=== PATIENT | male | born 1965 | race Caucasian/White ===

== ENCOUNTER 2019-11-13 07:41 | Emergency (ER) | payer BC ==
[~2019-11-13] VITALS: Ht 177.8 cm; Wt 106.6 kg
[~2019-11-13 07:41] MED LIST: AMOXICILLIN500 MG; DICYCLOMINE HCL20 MG PO; NORCO1 EA PO; Z.0.ZEGERID 20 MG1 E MT; [UNRECOGNIZED DRUG - OTHER] PO
[2019-11-13] MEDS ORDERED: SODIUM CHLORIDE 0.9% 1000ML 1,000 ML IV STA (08:15)
[2019-11-13] MEDS ORDERED: HYDRALAZINE HCL 20 MG/ML VIAL IV STA (08:20)
--- NOTE | 2019-11-13 08:32 | NUR ---
admin approval - Britneynicolle Deutsch @ 0832 accepting physician - Dr. Berto Burgos transfer to: [facility] ED [address] [facility] [address] fax face sheet to call report to
--- NOTE | 2019-11-13 08:41 | Emergency Department Note ---
History of Present Illnes History of Present Illness Chief Complaint: General Medicine Complaints History of Present Illness This is a 54 year old male Patient in from home with complaints of dizziness. Patient reports that it started this morning when he woke up. Patient recently had a cochlear surgery (2 weeks ago) with Dr. Abhishek Collado (ENT) at [facility] and said that he felt the surgical area behind his left ear and noted it was swollen. Patient states that he gently pushed on the area and heard some "buzz sound" and immediately became dizzy and fell to the floor. Patient does report that he had his regular follow up with Dr. Collado on November 10 and everything looked good. Historian: Patient, Family Member Arrival Mode: Car Onset (how long ago): hour(s) Radiation: Reports non-radiation Severity: severe Onset quality: sudden Timing of current episode: intermittent Progression: waxing and waning Chronicity: new Context: Reports recent surgery; Denies recent illness Relieving factors: none Exacerbating factors: none Associated symptoms: Reports denies other symptoms; Denies chest pain, Denies cough, Denies shortness of breath Treatments prior to arrival: none Past Medical/Family History Physician Review I have reviewed the patient's past medical and family history. Any updates have been documented here. Past Medical History Recent Fever: No Clinical Suspicion of Infectio: No New/Unexplained Change in Ment: No Past Medical History: Hypertension, Depression Other Medical History: IBS HARD OF HEARING Choclear implants Other Surgery: Cervical fusion in neck Bilateral knee surgery Vasectomy Tendon repair to right arm Bilateral Cochlear implants Social History Smoking Cessation: Never Smoker Counseling Performed: No Alcohol Use: Daily Any Illegal Drug Use: No TB Exposure/Symptoms: No Physically hurt or threatened: No Family History Family history of heart diseas: No Other Last Tetanus: Up to date Any Pre-Existing Lines (PICC,: No Review of Systems Review of Systems Constitutional: Reports no symptoms EENTM: Reports no symptoms Cardiovascular: Reports no symptoms Respiratory: Reports no symptoms Gastrointestinal: Reports no symptoms Genitourinary: Reports no symptoms Musculoskeletal: Reports no symptoms Integumentary: Reports no symptoms Neurological: Reports as per HPI Psychological: Reports no symptoms Endocrine: Reports no symptoms Hematological/Lymphatic: Reports no symptoms Physical Exam Related Data Allergies: Coded Allergies: No Known Allergies (Verified , 12/21/15) Triage Vital Signs Vital Signs Date Time Temp Pulse Resp B/P (MAP) Pulse Ox O2 Delivery O2 Flow Rate FiO2 11/13/19 07:53 98.1 66 20 170/117 100 Room Air Vital signs reviewed: Yes Physical Exam CONSTITUTIONAL Constitutional: Present well-developed, Present well-nourished HENT HENT: Present normocephalic, Present atraumatic, Present oropharynx clear/moist, Present nose normal HENT L/R: Present left ext ear normal, Present right ext ear normal EYES Eyes: Reports PERRL, Reports conjunctivae normal NECK Neck: Present ROM normal PULMONARY Pulmonary: Present effort normal, Present breath sounds normal CARDIOVASCULAR Cardiovascular: Present regular rhythm, Present heart sounds normal, Present capillary refill normal, Present normal rate GASTROINTESTINAL Abdominal: Present soft, Present nontender, Present bowel sounds normal GENITOURINARY Genitourinary: Present exam deferred SKIN Skin: Present warm, Present dry, Present other (swelling superior to left ear, ? fluctuance but not tender at all) MUSCULOSKELETAL Musculoskeletal: Present ROM normal NEUROLOGICAL Neurological: Present alert, Present oriented x 3, Present no gross motor or sensory deficits, Present abnormal gait (when i stood patient up, he immediately became dizzy/lightheaded, had to sit back down), Present other (NO NYSTAGMUS); Absent cranial nerve deficit, Absent sensory deficit, Absent abnormal DTRs, Absent weakness PSYCHOLOGICAL Psychological: Present mood/affect normal, Present judgement normal Results Laboratory Lab results reviewed: Yes Laboratory comments Laboratory Tests Test 11/13/19 08:11 White Blood Count 4.86 x10e3/uL (4.8-10.8) Red Blood Count 4.48 x10e6/uL (4.3-5.7) Hemoglobin 13.6 g/dL (14.0-18.0) Hematocrit 41.2 % (38.2-49.6) Mean Corpuscular Volume 92.0 fL (81-99) Mean Corpuscular Hemoglobin 30.4 pg (28-32) Mean Corpuscular Hemoglobin Concent 33.0 g/dL (31-35) Red Cell Distribution Width 12.9 % (11.7-14.4) Platelet Count 240 x10e3/uL (140-360) Neutrophils (%) (Auto) 55.0 % (38.7-80.0) Lymphocytes (%) (Auto) 29.2 % (18.0-39.1) Monocytes (%) (Auto) 12.3 % (4.4-11.3) Eosinophils (%) (Auto) 1.9 % (0.0-6.0) Basophils (%) (Auto) 1.2 % (0.0-1.0) Neutrophils # (Auto) 2.7 (2.1-6.9) Lymphocytes # (Auto) 1.4 (1.0-3.2) Monocytes # (Auto) 0.6 (0.2-0.8) Eosinophils # (Auto) 0.1 (0.0-0.4) Basophils # (Auto) 0.1 (0.0-0.1) Absolute Immature Granulocyte (auto 0.02 x10e3/uL (0-0.1) Prothrombin Time 12.2 seconds (11.9-14.5) Prothromb Time International Ratio 0.87 Activated Partial Thromboplast Time 30.9 seconds (23.8-35.5) Sodium Level 139 mmol/L (136-145) Potassium Level 4.1 mmol/L (3.5-5.1) Chloride Level 104 mmol/L (98-107) Carbon Dioxide Level 23 mmol/L (22-29) Anion Gap 16.1 mmol/L (8-16) Blood Urea Nitrogen 20 mg/dL (7-26) Creatinine 1.07 mg/dL (0.72-1.25) Estimat Glomerular Filtration Rate > 60 ML/MIN (60-) BUN/Creatinine Ratio 19 (6-25) Glucose Level 72 mg/dL (74-118) Calcium Level 9.5 mg/dL (8.4-10.2) Magnesium Level 2.1 MG/DL (1.3-2.1) Total Bilirubin 0.6 mg/dL (0.2-1.2) Aspartate Amino Transf (AST/SGOT) 21 IU/L (5-34) Alanine Aminotransferase (ALT/SGPT) 19 IU/L (0-55) Alkaline Phosphatase 87 IU/L (40-150) Creatine Kinase 162 IU/L (30-200) Creatine Kinase MB 1.40 ng/mL (0-4.3) Troponin I < 0.05 ng/mL (0.0-0.40) Total Protein 7.1 g/dL (6.5-8.1) Albumin 4.2 g/dL (3.5-5.0) Globulin 2.9 g/dL (2.3-3.5) Albumin/Globulin Ratio 1.4 (0.8-2.0) Ethyl Alcohol Level < 10.0 mg/dL (0.0-10.0) Laboratory Tests Test 11/13/19 08:11 White Blood Count 4.86 x10e3/uL (4.8-10.8) Red Blood Count 4.48 x10e6/uL (4.3-5.7) Hemoglobin 13.6 g/dL (14.0-18.0) Hematocrit 41.2 % (38.2-49.6) Mean Corpuscular Volume 92.0 fL (81-99) Mean Corpuscular Hemoglobin 30.4 pg (28-32) Mean Corpuscular Hemoglobin Concent 33.0 g/dL (31-35) Red Cell Distribution Width 12.9 % (11.7-14.4) Platelet Count 240 x10e3/uL (140-360) Neutrophils (%) (Auto) 55.0 % (38.7-80.0) Lymphocytes (%) (Auto) 29.2 % (18.0-39.1) Monocytes (%) (Auto) 12.3 % (4.4-11.3) Eosinophils (%) (Auto) 1.9 % (0.0-6.0) Basophils (%) (Auto) 1.2 % (0.0-1.0) Neutrophils # (Auto) 2.7 (2.1-6.9) Lymphocytes # (Auto) 1.4 (1.0-3.2) Monocytes # (Auto) 0.6 (0.2-0.8) Eosinophils # (Auto) 0.1 (0.0-0.4) Basophils # (Auto) 0.1 (0.0-0.1) Absolute Immature Granulocyte (auto 0.02 x10e3/uL (0-0.1) Prothrombin Time 12.2 seconds (11.9-14.5) Prothromb Time International Ratio 0.87 Activated Partial Thromboplast Time 30.9 seconds (23.8-35.5) Ethyl Alcohol Level < 10.0 mg/dL (0.0-10.0) Imaging Imaging results reviewed: Yes Procedures 12 Lead ECG Interpretation ECG Interpretation : ECG: ECG 1 Quality Control Clerk: Interpreted by ED physician Date: Nov 13, 2019 Time: 08:46 Rhythm: sinus bradycardia Rate: bradycardia BPM: 57 QRS axis: normal ST segments normal: Yes T waves flattening: aVL, V5, V6 Clinical Impression: abnormal ECG Additional Comments NON-SPEC TW CHANGES Assessment & Plan Medical Decision Making MDM DIZZINESS ? VERTIGO S/P LEFT COCHLEAR IMPLANT 2 WKS AGO, SWELLING LEFT SUPRA- AURICULAR AREA OF SCALP, BP ELEVATED - CHECK CBC, CHEM, ECG, CARDIAC ENZYMES, CT BRAIN - R/O DYSRHYTHMIA, STEMI/NSTEMI, VERTIGO, CVA, DEHYDRATION, ELECTROLYTE ABNL Reassessment Reassessment i spoke with Dr Abhishek Schwab at [facility] - he wants pt transferred so he can evaluate and do high-res CT of temporal bones - i offered to do it here but he wants us to do ER workup for his condition and then transfer, will do the high-res CT there of temporal bone. Transfer initiated, I spoke with Dr Chuck LOPEZ MD who accepted pt for transfer Assessment & Plan Final Impression: (1) Vertigo Last Vital Signs Date Time Temp Pulse Resp B/P (MAP) Pulse Ox O2 Delivery O2 Flow Rate FiO2 11/13/19 07:53 98.1 66 20 170/117 100 Room Air Medications in the ED Sodium Chloride 1,000 ml @ 0 mls/hr Q0M STAT IV ; Start 11/13/19 at 08:15; Stop 11/13/19 at 08:18; Status DC Hydralazine HCl 10 mg NOW STAT IV ; Start 11/13/19 at 08:20; Stop 11/13/19 at 08:28; Status DC SUBHA STALLINGS MD Nov 13, 2019 08:41
--- NOTE | 2019-11-13 08:54 | Diagnostic Imaging Report ---
TECHNIQUE: Frontal view of the chest. INDICATION: ^OFF-BALANCE ^[id number] ^0830 COMPARISON: None DISCUSSION: Limited evaluation due to portable technique. Lines and hardware: Partially visualized cervical fusion changes are noted. Heart and mediastinum: Stable. Lungs and pleura: No focal airspace consolidation. No pleural effusion. No pneumothorax. Soft tissues and bones: No acute abnormality. IMPRESSION: Negative for acute intrathoracic process. Signed by: Norm Thompson MD on 11/13/2019 8:50 AM
[2019-11-13 09:04] LABS: BASOPHILS # (AUTO) 0.1 (0.0-0.1); BASOPHILS % 1.2 % (0.0-1.0); EOSINOPHILS # (AUTO) 0.1 (0.0-0.4); EOSINOPHILS % 1.9 % (0.0-6.0); HEMATOCRIT 41.2 % (38.2-49.6); HEMOGLOBIN 13.6 g/dL (14.0-18.0); LYMPHOCYTES # (AUTO) 1.4 (1.0-3.2); LYMPHOCYTES % 29.2 % (18.0-39.1); MEAN CORPUSCULAR HEMOGLOBIN 30.4 pg (28-32); MONOCYTES # (AUTO) 0.6 (0.2-0.8); MONOCYTES % 12.3 % (4.4-11.3); NEUTROPHILS # (AUTO) 2.7 (2.1-6.9); PLATELET COUNT 240 x10e3/uL (140-360); RED BLOOD COUNT 4.48 x10e6/uL (4.3-5.7); RED CELL DISTRIBUTION WIDTH 12.9 % (11.7-14.4)
[2019-11-13 09:14] LABS: INR 0.87; PROTHROMBIN TIME 12.2 seconds (11.9-14.5)
[2019-11-13 09:15] LABS: PARTIAL THROMBOPLASTIN TIME 30.9 seconds (23.8-35.5)
[2019-11-13 09:27] LABS: ALANINE AMINOTRANSFERASE 19 IU/L (0-55); ALBUMIN 4.2 g/dL (3.5-5.0); ALBUMIN/GLOBULIN RATIO 1.4 (0.8-2.0); ALKALINE PHOSPHATASE 87 IU/L (40-150); ANION GAP 16.1 mmol/L (8-16); BLOOD UREA NITROGEN 20 mg/dL (7-26); BUN/CREATININE RATIO 19 (6-25); CALCIUM 9.5 mg/dL (8.4-10.2); CARBON DIOXIDE 23 mmol/L (22-29); CHLORIDE 104 mmol/L (98-107); CREATINE KINASE 162 IU/L (30-200); CREATININE, SERUM 1.07 mg/dL (0.72-1.25); EST GLOMERULAR FILTRATION RATE > 60 ML/MIN (60-); GLUCOSE 72 mg/dL (74-118); MAGNESIUM 2.1 MG/DL (1.3-2.1); POTASSIUM 4.1 mmol/L (3.5-5.1); SODIUM 139 mmol/L (136-145)
--- OUTSIDE RECORDS SUMMARY | 2019-11-13 09:37 | XMS REPORT | Clinical Summary ---
Author Author REX [facility] Address Unknown Phone Unavailable Care Team Providers Care Librarian Specialist Name Role Phone Benjamin Costa MD PCP [phone] Allergies No Known Allergies Medications End Date Status Medication Sig Dispensed Refills Start Date Active losartan (COZAAR) 50 MG Take 50 mg by 0 tablet mouth daily. Active DULoxetine (CYMBALTA) 20 Take 20 mg by 0 MG capsule mouth daily. 06/01/2019 amoxicillin-clavulanate Take 1 tablet 20 tablet 0 (AUGMENTIN) 875-125 mg by mouth 2 0 per tablet (two) times daily for 10 days. 06/01/2019 acetaminophen-codeine Take 1 tablet 30 tablet 0 (TYLENOL #4) 300-60 mg by mouth 0 per tablet every 6 (six) hours as needed for up to 10 days. Max Daily Amount: 4 tablets 05/29/2019 methylPREDNISolone follow 21 tablet 0 02 (MEDROL DOSEPACK) 4 mg package 0 tablet directions. 05/29/2019 ondansetron (ZOFRAN-ODT) Take 1 tablet 10 tablet 0 8 MG disintegrating (8 mg total) 0 tablet by mouth 2 (two) times daily as needed for Nausea for up to 7 days. 05/22/2019 pneumococcal vaccine Inject 0.5 0.5 mL 0 05/21 (PNEUMOVAX 23) 25 mcg/0.5 mLs 0 mL injection intramuscular ly once for 1 dose. 11/02/2019 amoxicillin-clavulanate Take 1 tablet 20 tablet 0 (AUGMENTIN) 875-125 mg by mouth 2 0 per tablet (two) times daily for 10 days. 11/02/2019 acetaminophen-codeine Take 1 tablet 30 tablet 0 (TYLENOL #4) 300-60 mg by mouth 0 per tablet every 6 (six) hours as needed for up to 10 days. Max Daily Amount: 4 tablets Active Problems Problem Noted Date Hearing loss 10/23/2019 Encounters Care Team Description Date Type Specialty Berto Burgos Jr., MD 11/13/2019 Hospital Encounter Drake Davis MD 10/23/2019 Anesthesia Event bAhishek Schwab MD IMPLANT,COCHLEAR 10/23/2019 Surgery Abhishek Schwab MD 10/23/2019 Hospital Encounter 10/23/2019 Travel 10/20/2019 Hospital Pre-Admission Testi ng Encounter Abhishek Schwab MD Asymmetric SNHL (sensorineural hearing l oss) (Primary Dx); Presbycusis of both ears 05/26/2019 Outside Orders Central Scheduling Abhishek Schwab MD IMPLANT,COCHLEAR 05/22/2019 Surgery Darke Davis MD 05/22/2019 Anesthesia Event Abhishek Schwab MD 05/22/2019 Hospital Encounter 05/22/2019 Travel Abhishek Schwab MD 05/20/2019 Hospital Cardiology Encounter Abhishek Schwab MD 05/20/2019 Hospital Pre-Admission Testi ng Encounter 05/20/2019 Orders Only General Internal Me dicine after 11/12/2018 Social History Date Tobacco Use Types Packs/Day Years Used Former Smoker Smokeless Tobacco: Never Used Comments: as teenager only Alcohol Use Drinks/Week oz/Week Comments Yes 2 Cans of 1.2 beer Alcohol Habits Answer Date Recorded How often do you have a drink containing alcohol? Never 05/20/2019 How many drinks containing alcohol do you have on No t asked a typical day when you are drinking? How often do you have six or more drinks on one Not asked occasion? Sex Assigned at Date Recorded Not on file Industry Job Start Date Occupation Not on file Not on file Not on file Travel End Travel History Travel Start No recent travel history available. Last Filed Vital Signs Time Taken Vital Sign Reading 10/23/2019 4:00 PM CDT Blood Pressure 135/85 10/23/2019 4:00 PM CDT Pulse 87 10/23/2019 4:00 PM CDT Temperature 36.6 C (97.8 F) 10/23/2019 4:00 PM CDT Respiratory Rate 19 10/23/2019 4:00 PM CDT Oxygen Saturation 96% - Inhaled Oxygen - Concentration 10/23/2019 7:50 AM CDT Weight 100.8 kg (222 lb 4.8 oz) 10/23/2019 7:50 AM CDT Height 177.8 cm (5' 10") 10/23/2019 7:50 AM CDT Body Mass Index 31.9 Plan of Treatment Not on file Implants Device Identifier Shelf Expiration Date Model / Serial / L ot Implanted Type Area Manufactur er 02/17/2021 [id number] / [id number] / Nucleus [id number] With Elctrd [id number] - IMPLANTS Right: Ear COCHLEAR [id number] [employer] Implanted: Qty: 1 on 05/22/2019 by Abhishek Schwab MD 09/06/2021 [id number] / [id number] / [id number] Nucleus [id number] With Elctrd [id number] - IMPLANTS Left: Ear COCHLEAR [id number] [employer] Implanted: Qty: 1 on 10/23/2019 by Abhishek Schwab MD Procedures Comments Procedure Name Priority Date/Time Associated Diag nosis PROCEDURE W/ NIMS 10/23/2019 Sensory hearing los s, 10:00 AM CDT bilateral Case Notes 2 HRS PER [facility]RISTINAP ATIENT ISN'T A DIALYSIS PATIENT Special Needs (NIMS) IMPLANT,COCHLEAR 10/23/2019 Sensory hearing los s, 10:00 AM CDT bilateral Case Notes 2 HRS PER CHRISTINAP ATIENT ISN'T A DIALYSIS PATIENT Special Needs (NIMS) POCT-HEMOGLOBIN METER Routine 10/23/2019 8:23 AM CDT BASIC METABOLIC PANEL (7) STAT 10/23/2019 8:10 AM CDT PROCEDURE W/ OPERATING 05/22/2019 Sensory hearin g loss, MICROSCOPE 10:30 AM CDT bilateral Case Notes 2 HRS Special Needs (NIMS) PROCEDURE W/ NIMS 05/22/2019 Sensory hearing los s, 10:30 AM CDT bilateral Case Notes 2 HRS Special Needs (NIMS) IMPLANT,COCHLEAR 05/22/2019 Sensory hearing los s, 10:30 AM CDT bilateral Case Notes 2 HRS Special Needs (NIMS) BUN AND CREATININE Routine 05/20/2019 W/RATIO 2:55 PM CDT ELECTROLYTE PANEL Routine 05/20/2019 2:55 PM CDT HEMOGLOBIN Routine 05/20/2019 2:55 PM CDT ECG 12-LEAD Routine 05/20/2019 11:14 AM CDT Procedure Note - Interface, External Ris In - 05/20/2019 5:33 PM CDT Ventricula r Rate 60 BPM Atrial Rate 60 BPM P-R Interval 150 ms QRS Duration 112 ms Q-T Interval 378 ms QTC Calculatio n(Bazett) 378 ms P [facility] 23 degrees R [facility] -25 degrees T [facility] 35 degrees Normal sinus rhythm Normal ECG No previous ECGs available ECG 12-LEAD Routine 05/20/2019 11:14 AM CDT after 11/12/2018 Results * POC-Hemoglobin meter (10/23/2019 8:23 AM CDT) POC-Hemoglobin Meter 14.5Comment: TESTED AT [facility] 13.0 - 16.8 g/dL [address] Specimen Blood Performing Organization Address City/State/Zipcoor Ph one Number [place] [address] [facility] * Basic Metabolic Panel (10/23/2019 8:10 AM CDT) Sodium 134 (L) 136 - 145 meq/L [facility] Potassium 3.9 3.5 - 5.1 meq/L [facility] Chloride 102 98 - 107 meq/L [facility] CO2 26 22 - 29 meq/L [facility] BUN 15 7 - 21 mg/dL [facility] Creatinine 0.91 0.57 - 1.25 mg/dL [facility] Glucose 104 70 - 105 mg/dL [facility] Calcium 8.9 8.4 - 10.2 mg/dL [facility] EGFR 87Comment: ESTIMATED GFR IS mL/min/1.73 sq m [facility] NOT ACCURATE CREATININE [facility] CLEARANCE IN PREDICTING GLOMERULAR FILTRATION RATE. ESTIMATED GFR IS NOT APPLICABLE FOR DIALYSIS PATIENTS. Specimen Blood Narrative Performed At Chief Lock Tender Operator ID - VANCE C [facility] Performing Organization Address City/[facility] Ph one Number [place] [address] [facility] * BUN and Creatinine (05/20/2019 2:55 PM CDT) BUN 15 7 - 21 mg/dL [facility] Creatinine 1.04Comment: Specimen slightly 0.57 - 1.25 mg/ dL [facility] hemolyzed [facility] BUN/Creatinine Ratio 14.4Comment: For a normal [facility] individual on a normal diet, [facility] the reference interval for the mass ratio ranges between 12:1 and 20:1 (BUN in mg/dL/creatinine in mg/dL) EGFR 74Comment: ESTIMATED GFR IS mL/min/1.73 sq m [facility] NOT ACCURATE CREATININE [facility] CLEARANCE IN PREDICTING GLOMERULAR FILTRATION RATE. ESTIMATED GFR IS NOT APPLICABLE FOR DIALYSIS PATIENTS. Specimen Blood Narrative Performed At Chief Lock Tender Operator ID - DOROTHEA E [facility] Performing Organization Address City/[facility] Ph one Number [facility] [address] [place], [place] [address] [facility] * Hemoglobin (05/20/2019 2:55 PM CDT) Hemoglobin 14.6 13.7 - 17.5 GM/DL [facility] Specimen Blood Narrative Performed At Chief Lock Tender Operator ID - [id number] [facility] Performing Organization Address City/State/Zipcode Ph one Number [facility] [address] [place], [place] [address] [facility] * Electrolytes (05/20/2019 2:55 PM CDT) Sodium 140 136 - 145 meq/L [facility] Potassium 3.7Comment: Specimen slightly 3.5 - 5.1 meq/L [facility] hemolyzed [facility] Chloride 105 98 - 107 meq/L [facility] CO2 29 22 - 29 meq/L [facility] Specimen Blood Narrative Performed At Chief Lock Tender Operator MARY JANE Worthington [facility] Performing Organization Address [facility] Ph one Number [facility] [address] [place], [place] [address] [facility] * ECG 12 lead (05/20/2019 11:14 AM CDT) Specimen Narrative Performed At Ventricular Rate 60 BPM GE MUSE Atrial Rate 60 BPM P-R Interval 150 ms QRS Duration 112 ms Q-T Interval 378 ms QTC Calculation(Bazett) 378 ms P [facility] 23 degrees R [facility] -25 degrees T [facility] 35 degrees Normal sinus rhythm Normal ECG No previous ECGs available Confirmed by Lo HOLGUIN, BRANDON ([id number]) on 05/21/2019 4:24:50 PM Procedure Note Interface, External Ris In - 05/21/2019 4:24 PM CDT Ventricular Rate 60 BPM Atrial Rate 60 BPM P-R Interval 150 ms QRS Duration 112 ms Q-T Interval 378 ms QTC Calculation(Bazett) 378 ms P [facility] 23 degrees R [facility] -25 degrees T [facility] 35 degrees Normal sinus rhythm Normal ECG No previous ECGs available Confirmed by Lo HOLGUIN BASANT ([id number]) on 05/21/2019 4:24:50 PM Performing Organization Address City/State/[facility] Number GE MUSE after 11/12/2018 Insurance Payer Benefit Subscriber ID Type Phone Address Plan / Group BLUE CROSS/BLUE SHIELD BCBS PPO xxxxxxxxxxxx PPO [address] [place] [address] CHOICE [id number] [facility] (Home) [place] [address]
--- OUTSIDE RECORDS SUMMARY | 2019-11-13 09:37 | XMS REPORT | Continuity of Care Document ---
Author Author [facility] t Organization [facility] Address [address] [place] [address] Phone Unavailable Care Team Providers Care Fitness Floor Attendant Name Role Phone Igor QUINTERO, Celia Alexander PCP [phone] Michael SCHWAB DEBBIE Attphys Unavailable Nate STALLINGS Attphys Unavailable Aubrey QUINTERO, Berto Attphys Pablo Schwab MD. Debbie Attphys Susan QUINTERO, Drkae Attphys Pablo Schwab MD Attphys Michael SCHWAB Admphys Unavailable Payers Payer Name Policy Type Policy Number Effective Date Expiration Date S michela [employer]UE [employer] PPO POS EPO C [id number], [place] [address] xxxxxxxxxxxx [facility] Problems Condition Name Condition Details Condition Category Status Onset Date Resolution Date Last Treatment Date Treating Clinician Comments Source Hearing loss Hearing loss Disease Active 2019-10-23 00:00:00 [facility] Allergies, Adverse Reactions, Alerts This patient has no known allergies or adverse reactions. Social History Social Habit Start Date Stop Date Quantity Comments Source History SDOH Alcohol Std Drinks [facility] History SDOH Alcohol Binge [facility] Sex Assigned At [facility] History SDOH Alcohol Frequency 2019-05-20 00:00:00 2019-05-20 00:00:0 0 1 [facility] Tobacco Comment 2019-05-20 00:00:00 2019-05-20 00:00:00 as teenager o nly [facility] Smoking Status Start Date Stop Date Source Former smoker 2019-10-26 00:00:00 2019-10-26 00:00:00 [facility] Medications Ordered Medication Name Filled Medication Name Start Date Stop Da te Current Medication? Ordering Clinician Indication Dosage Frequency Signature (SIG) Comments Components Source amoxicillin-clavulanate (AUGMENTIN) 875-125 mg per tablet 2019-10-23 00:00:00 2019-11-02 23:59:00 No 1{tbl} Q.5D Take 1 tablet by mouth 2 (two) times daily for 10 days. [facility] acetaminophen-codeine (TYLENOL #4) 300-60 mg per tablet 2019-10-23 00:00:00 2019-11-02 23:59:00 No 1{tbl} Take 1 tablet by mouth every 6 (six) hours as needed for up to 10 days. Max Daily Amount: 4 tablets [facility] amoxicillin-clavulanate (AUGMENTIN) 875-125 mg per tablet 2019-05-22 00:00:00 2019-06-01 23:59:00 No 1{tbl} Q.5D Take 1 tablet by mouth 2 (two) times daily for 10 days. [facility] acetaminophen-codeine (TYLENOL #4) 300-60 mg per tablet 2019-05-22 00:00:00 2019-06-01 23:59:00 No 1{tbl} Take 1 tablet by mouth every 6 (six) hours as needed for up to 10 days. Max Daily Amount: 4 tablets [facility] methylPREDNISolone (MEDROL DOSEPACK) 4 mg tablet 2019-05-22 00:00:00 2019-05-29 23:59:00 No follow package direc tions. [facility] ondansetron (ZOFRAN-ODT) 8 MG disintegrating tablet 2019-05-22 00:00:00 2019-05-29 23:59:00 No 8mg Take 1 tablet (8 mg total) by mouth 2 (two) times daily as needed for Nausea for up to 7 days. [facility] pneumococcal vaccine (PNEUMOVAX 23) 25 mcg/0.5 mL injection 2019-05-22 00:00:00 2019-05-22 23:59:00 No .5mL Inject 0.5 mLs intramuscularly once for 1 dose. [facility] DULoxetine (CYMBALTA) 20 MG capsule 2019-05-20 10:38:43 Yes 20mg QD Take 20 mg by mouth daily. [facility] losartan (COZAAR) 50 MG tablet 2019-05-20 10:38:42 Yes 50mg QD Take 50 mg by mouth daily. [facility] Vital Signs Vital Name Observation Time Observation Value Comments Source Systolic blood pressure 2019-10-23 16:00:00 135 mm[Hg] [facility] Diastolic blood pressure 2019-10-23 16:00:00 85 mm[Hg] [facility] Heart rate 2019-10-23 16:00:00 87 /min [facility] Body temperature 2019-10-23 16:00:00 36.56 Carol [facility] Respiratory rate 2019-10-23 16:00:00 19 /min [facility] Oxygen saturation in Arterial blood by Pulse oximetry 10-22 16:00:00 96 /[facility] height 2019-10-23 07:50:00 177.8 cm [facility] Body weight Measured 2019-10-23 07:50:00 100.835 kg [facility] BMI 2019-10-23 07:50:00 31.90 kg/m2 [facility] Procedures Procedure Date / Time Performed Performing Clinician Sourc e IMPLANT,COCHLEAR 2019-10-23 10:00:00 Debbie Schwab [facility] PROCEDURE W/ NIMS 2019-10-23 10:00:00 Debbie Schwab [facility] POCT-HEMOGLOBIN METER 2019-10-23 08:23:00 Debbie Schwab [facility] BASIC METABOLIC PANEL (7) 2019-10-23 08:10:00 Drake Davis [facility] IMPLANT,COCHLEAR 2019-05-22 10:30:00 Debbie Schwab [facility] PROCEDURE W/ NIMS 2019-05-22 10:30:00 Debbie Schwab [facility] PROCEDURE W/ OPERATING MICROSCOPE 2019-05-22 10:30:00 Nate Schwab [facility] HEMOGLOBIN 2019-05-20 14:55:00 Igor Vicente [facility] ELECTROLYTE PANEL 2019-05-20 14:55:00 Igor Vicente [facility] BUN AND CREATININE W/RATIO 2019-05-20 14:55:00 Igor Vicente and [facility] ECG 12-LEAD 2019-05-20 11:14:14 Unknown, Hl7 Doctor [facility] Encounters Start Date/Time End Date/Time Encounter Type Admission Type Attendi [facility] Care Department Encounter ID Source 2019-06-11 12:56:02 2019-06-11 13:16:39 Office Visit Debbie Haskins [facility] [id number] 2019-05-06 10:58:31 2019-05-06 12:37:33 Office Visit Debbie Haskins [facility] [id number] 2019-04-15 13:36:50 2019-04-15 16:33:48 Office Visit Debbie Haskins [facility] [id number] Results Test Description Test Time Test Comments Results Result Comments Source CHEST SINGLE (PORTABLE) 2019-11-13 08:50:00 [facility] [address] [place] [address] Patient Name: ROCIO VELASCO MR #: [id number] : 1965 Age/Sex: 54/M Req #: [id number] Adm Physician: Ordered by: SUBHA STALLINGS MD Report #: [id number] Location: ER Room/Bed: Procedure: [id number] DX/CHEST SINGLE (PORTABLE) Exam Date: 11/13/19 Exam Time: 829 REPORT STATUS: Signed TECHNIQUE: Frontal view of the chest. INDICATION: OFF-BALANCE 20191113 COMPARISON: None DISCUSSION: Limited evaluation due to portable technique. Lines and hardware: Partially visualized cervical fusion changes are noted. Heart and mediastinum: Stable. Lungs and pleura: No focal airspace consolidation. No pleural effusion. No pneumothorax. Soft tissues and bones: No acute abnormality. IMPRESSION: Negative for acute intrathoracic process. Signed by: Pual Thompson MD on 11/13/2019 8:50 AM Dictated By: PAUL THOMPSON MD 0850 Transc ribed By: DAR on 11/13/19 0850 COPY TO: SUBHA STALLINGS MD POC-Hemoglobin meter 2019-11-12 09:13:00 Test Item POC-Hemoglobin Meter (test code = 1539) 14.5 g/dL 13-16.8 TESTED AT [facility] [address] [facility] [address] Lab Interpretation (test code = 05537-7) [facility] [id number] 09:13:00* Test Item Value Reference Range Interpretation Comments POC-HEMOGLOBIN METER (BEAKER) (test code = 1539) 14.5 g/dL 13.0- 16.8 TESTED AT [place] [id number] [facility] [address] Basic Metabolic [id number] 08:49:00* Test Item Value Reference Range Interpretation Comments Sodium (test code = 2951-2) 134 meq/L 136-145 L Potassium (test code = 2823-3) 3.9 meq/L 3.5-5.1 Chloride (test code = 2075-0) 102 meq/L 98-107 CO2 (test code = 8-9) 26 meq/L 22-29 BUN (test code = 3094-0) 15 mg/dL 7-21 Creatinine (test code = 2160-0) 0.91 mg/dL 0.57-1.25 Glucose (test code = 2345-7) 104 mg/dL 70-105 Calcium (test code = 74683-4) 8.9 mg/dL 8.4-10.2 EGFR (test code = 54153-0) 87 mL/min/1.73 sq m ESTIMATED GFR IS NOT ACCURATE CREATININE CLEARANCE IN PREDICTING GLOMERULAR FILTRATION RATE. ESTIMATED GFR IS NOT APPLICABLE FOR DIALYSIS PATIENTS. ADILENE (test code = ADILENE) Curing Press Operator ID - VANCE C Lab Interpretation (test code = 43576-6) Abnormal [facility] METABOLIC [id number] 08:49:00* Test Item Value Reference Range Interpretation Comments SODIUM (BEAKER) (test code = 381) 134 meq/L 136-145 L POTASSIUM (BEAKER) (test code = 379) 3.9 meq/L 3.5-5.1 CHLORIDE (BEAKER) (test code = 382) 102 meq/L 98-107 CO2 (BEAKER) (test code = 355) 26 meq/L 22-29 BLOOD UREA NITROGEN (BEAKER) (test code = 354) 15 mg/dL 7-21 CREATININE (BEAKER) (test code = 358) 0.91 mg/dL 0.57-1.25 GLUCOSE RANDOM (BEAKER) (test code = 652) 104 mg/dL 70-105 CALCIUM (BEAKER) (test code = 697) 8.9 mg/dL 8.4-10.2 EGFR (BEAKER) (test code = 1092) 87 mL/min/1.73 sq m ESTIMATED GFR IS NOT ACCURATE CREATININE CLEARANCE IN PREDICTING GLOMERULAR FILTRATION RATE. ESTIMATED GFR IS NOT APPLICABLE FOR DIALYSIS PATIENTS. Curing Press Operator ID - VANCE CECG 12 [id number] 16:24:52Interface, External Ris In - 05/21/2019 4:24 PM CDTVentricular Rate 60 BPMAtrial Rate 60 BPMP-R Interval 150 msQRS Duration 112 msQ-T Interval 378 msQTC Calculation(Bazett) 378 msP Monarch 23 degreesR Monarch -25 degreesT Monarch 35 degreesNormal sinus rhythmNormal ECGNo previous ECGs availableConfirmed by Lo HOLGUIN BASANT ([id number]) on 05/21/2019 4:24:50 [facility] 15:30[facility]00* Test Item Value Reference Range Interpretation Comments Sodium (test code = 2951-2) 140 meq/L 136-145 Potassium (test code = 2823-3) 3.7 meq/L 3.5-5.1 Specimen slightly hemolyzed Chloride (test code = 2075-0) 105 meq/L 98-107 CO2 (test code = 2027-9) 29 meq/L 22-29 ADILENE (test code = ADILENE) Curing Press Operator ID - DOROTHEA E Lab Interpretation (test code = 82914-3) [facility] [id number] 15:30:00* Test Item Value Reference Range Interpretation Comments BUN (test code = 3094-0) 15 mg/dL 7-21 Creatinine (test code = 2160-0) 1.04 mg/dL 0.57-1.25 Specimen slightly hemolyzed BUN/Creatinine Ratio (test code = 3097-3) 14.4 For a normal individual on a normal diet, the reference interval for the mass ratio ranges between 12:1 and 20:1 (BUN in mg/dL/creatinine in mg/dL) EGFR (test code = 15835-4) 74 mL/min/1.73 sq m ESTIMATED GFR IS NOT ACCURATE CREATININE CLEARANCE IN PREDICTING GLOMERULAR FILTRATION RATE. ESTIMATED GFR IS NOT APPLICABLE FOR DIALYSIS PATIENTS. ADILENE (test code = ADILENE) Curing Press Operator ID - DOROTHEA E [facility] 15:30:00* Test Item Value Reference Range Interpretation Comments SODIUM (BEAKER) (test code = 381) 140 meq/L 136-145 POTASSIUM (BEAKER) (test code = 379) 3.7 meq/L 3.5-5.1 Specimen slightly hemolyzed CHLORIDE (BEAKER) (test code = 382) 105 meq/L 98-107 CO2 (BEAKER) (test code = 355) 29 meq/L 22-29 Curing Press Operator ID - DOROTHEA EBUN AND CREATININE [id number] 15:30:00* Test Item Value Reference Range Interpretation Comments BLOOD UREA NITROGEN (BEAKER) (test code = 354) 15 mg/dL 7-21 CREATININE (BEAKER) (test code = 358) 1.04 mg/dL 0.57-1.25 Specimen slightly hemolyzed BUN/CREATININE RATIO (BEAKER) (test code = 1800) 14.4 For a normal individual on a normal diet, the reference interval for the mass ratio ranges between 12:1 and 20:1 (BUN in mg/dL/creatinine in mg/dL) EGFR (BEAKER) (test code = 1092) 74 mL/min/1.73 sq m ESTIMATED GFR IS NOT ACCURATE CREATININE CLEARANCE IN PREDICTING GLOMERULAR FILTRATION RATE. ESTIMATED GFR IS NOT APPLICABLE FOR DIALYSIS PATIENTS. Curing Press Operator MARY JANE Prieto DOROTHEA [id number] 15:06:00* Test Item Value Reference Range Interpretation Comments Hemoglobin (test code = 786-4) 14.6 13.7- 17.5 GM/DL ADILENE (test code = ADILENE) Curing Press Operator ID - [id number] Lab Interpretation (test code = 76005-7) [facility] 15:06:00* Test Item Value Reference Range Interpretation Comments HEMOGLOBIN (BEAKER) (test code = 410) 14.6 GM/DL 13.7-17.5 Curing Press Operator ID - [id number]
--- NOTE | 2019-11-13 10:06 | Diagnostic Imaging Report ---
Examination: CT BRAIN WO CONTRAST History:^N ^OFF-BALANCE, LEFT COCHLEAR IMPLANT 2 WEEKS AGO, ELEVATED BP ^[id number] ^0830; dizziness; left ear swelling. Comparison studies:None Technique: Axial images were obtained from the skull base to the vertex. Coronal and sagittal images reconstructed from the axial data. Dose modulation, iterative reconstruction, and/or weight based adjustment of the mA/kV was utilized to reduce the radiation dose to as low as reasonably achievable. Intravenous contrast: None Findings: Scalp: No abnormalities. Bones: No fractures, blastic or lytic lesions. Brain sulci: Appropriate for age. Ventricles: Normal in size and configuration. No hydrocephalus. Extra-axial space: No abnormalities. Parenchyma: No abnormal densities. No masses, hemorrhage, or acute or chronic cortical based vascular insults.. Sellar/suprasellar region: No abnormalities. Craniocervical junction: Patent foramen magnum. No Chiari one malformation. Incidental findings: Partially visualized bilateral cochlear implants with opacification of the left mastoid air cells and prominence of the soft tissues surrounding the external portion of the implant. Impression: No acute intracranial abnormalities. Partially visualized bilateral cochlear implants with opacification of the left mastoid air cells and prominence of the soft tissues surrounding the external portion of the implant. Signed by: Dr. Chante Reyes M.D. on 11/13/2019 10:02 AM
== END 2019-11-13 11:10 | disposition other institution (70) ==
LOC: ER 08:20
DX: R42 Dizziness and giddiness (principal); Z98.890 Other specified postprocedural states; R94.31 Abnormal electrocardiogram [ECG] [EKG]; I10 Essential (primary) hypertension; F32.9 Major depressive disorder, single episode, unspecified
CPT/HCPCS: 36415; 70450; 71045; 80053; 80320; 82550; 82553; 83735; 84484; 85025; 85610; 85730; 93005; 99284; J0360; J7030

== ENCOUNTER → 2024-09-18 | Outpatient (REF) | payer BC ==
[~2024-09-18] MED LIST changes: +ONDANSETRON ODT4 MG PO
== END ==
LOC: MRI 10:37
PROVIDERS: ATTEND Family Medicine
DX: M25.561 Pain in right knee (principal)